=== PATIENT | male | born 1960 | race Two or more races ===

== ENCOUNTER → 2025-03-10 | Outpatient (CLI) | payer OTHER, MEDICARE, SELFPAY ==
--- NOTE | 2025-03-10 16:00 | XR_ITS ---
Examination: CT abdomen and pelvis without contrast. Coronal 3-D reconstructions. Sagittal 2-D reconstructions. Date and time of exam March 10, 2025, 1621 hours INDICATIONS: Right lower abdominal pain 10 months, diagnosis inguinal hernia CTDI: vol (mGy): 10 DLP: (mGycm): 623 Technique: Axial images of the abdomen have been obtained, 3 mm slice thickness Intravenous contrast material has not been administered. Low dose protocols were performed. One or more of the following dose reduction techniques were used; automated exposure control, adjustment of the mA and/or KV according to patient size, use of iterative reconstruction technique. Findings: Fatty infiltration throughout the liver no focal liver or splenic lesions Contracted gallbladder No pancreatic or adrenal mass. No renal or ureteral calculi, no hydronephrosis No bowel obstruction No pericecal inflammatory change Scattered colonic diverticulosis, no diverticulitis Normal seminal vesicles Prostatomegaly, transverse dimension 4.7 cm No inguinal hernias or groin lymphadenopathy Prominent osteopenia IMPRESSION: Fatty liver. No renal or ureteral calculi, no hydronephrosis No CT findings of appendicitis or bowel obstruction Moderate prostatomegaly No inguinal hernias or groin lymphadenopathy
== END | disposition home or self-care (01) ==
PROVIDERS: PCP Family Medicine; Referring Provider Family Medicine; Visit Provider Family Medicine
DX: N40.0 Benign prostatic hyperplasia without lower urinary tract symptoms (principal); K76.0 Fatty (change of) liver, not elsewhere classified
CPT/HCPCS: 74176